=== PATIENT | male | born 1970 | race Caucasian/White ===

== ENCOUNTER 2017-05-04 12:13 | Emergency (ER) | payer MEDICAID ==
[~2017-05-04] VITALS: Ht 170.2 cm; Wt 90.7 kg
[2017-05-04] MEDS ORDERED: LORAZEPAM INJ 2 MG/ML VIAL IVP ONE (12:30)
[2017-05-04] MEDS ORDERED: IV NS 0.9% 1,000 ML BAG IV ONE (12:30)
--- NOTE | 2017-05-04 12:30 | NUR ---
[id number]/[employer] FROM STREET: S/P ETOH, MARIJUANA, METH USE. NOTED ANXIOUS, RESTLESS, DEMANDING, LOUD. DIRECTABLE. PA AT BS FOR EVAL AND PT C/O "CHEST ACHE". DENIES TRAUMA. NOTED SCABS, NEEDLE ALTAMIRANO ALL OVER. REFUSES VS TO BE CHECKED. [employer] AT BS. SAFETY AND COMFORT MEASURES PROVIDED. WILL MONITOR.
[2017-05-04] MEDS ORDERED: LORAZEPAM INJ 2 MG/ML VIAL ONE (12:33)
--- NOTE | 2017-05-04 12:50 | NUR ---
PT NOTED COMBATIVE, RESTLESS AND UNCOOPERATIVE WITH ER STAFF. NOTED VERBALLY DEMANDING, AND AGITATED. CODE BINDU CALLED. RESTRAINTS SAFELY PLACED ON PT PER PROTOCOL. MEDS GIVEN ORDERED. VSS. WILL MONITOR.
[2017-05-04] MEDS ORDERED: HALOPERIDOL LACTATE INJ 5 MG/ML VIAL ONE (12:55)
[2017-05-04] MEDS ORDERED: HALOPERIDOL LACTATE INJ 5 MG/ML VIAL IM ONE (13:00)
[2017-05-04 13:18] LABS: APPEARANCE,URINE Clear (CLEAR); BILIRUBIN,URINE Negative (NEGATIVE); BLOOD, URINE Negative Ery/uL (NEGATIVE); COLOR,URINE Yellow (YELLOW); KETONES,URINE 15 (NEGATIVE); LEUKOCYTE ESTERASE ,URINE Negative (NEGATIVE); NITRITE, URINE Negative (NEGATIVE); PROTEIN,URINE 30 mg/dl (NEGATIVE); UGLUCOSE Negative (NEGATIVE); UROBILINOGEN,URINE 0.2 EU/dL (0.2)
[2017-05-04 13:27] LABS: BACTERIA,URINE None seen /HPF (None Seen); RBC,URINE NONE SEEN /HPF (0-2); WBC,URINE 0-2 /HPF (0-3)
[2017-05-04 13:28] LABS: SQUAMOUS EPITHELIAL CELL,UR Few /HPF (None Seen)
--- NOTE | 2017-05-04 14:00 | NUR ---
UNABLE TO GET IV ACCESS.
--- NOTE | 2017-05-04 15:00 | NUR ---
Patient is resting comfortably in bed with eyes closed. Easily aroused. VSS
--- NOTE | 2017-05-04 17:00 | NUR ---
Patient is resting comfortably in bed with eyes closed. Easily aroused. VSS
--- NOTE | 2017-05-04 17:50 | NUR ---
Pt ambulatory with a steady gait.
[2017-05-04 18:23] VITALS: BP 125/80
--- NOTE | 2017-05-04 18:24 | NUR ---
Patient discharged to home in stable condition. Written and verbal after care instructions given. Patient verbalizes understanding of instruction.
== END 2017-05-04 21:41 | disposition home or self-care (01) ==
LOC: ER 12:16
DX: F15.159 Other stimulant abuse with stimulant-induced psychotic disorder, unspecified (principal); J18.1 Lobar pneumonia, unspecified organism; F12.10 Cannabis abuse, uncomplicated
CPT/HCPCS: 71045-TC; 80305; 81000-TC; A4606; J1630; J2060; J7030; Z7610

== ENCOUNTER 2017-05-05 18:14 | Inpatient (IN) | payer MEDICAID ==
[~2017-05-05] VITALS: Ht 180.3 cm; Wt 90.7 kg
[2017-05-05] MEDS ORDERED: CEFTRIAXONE 1GM BAG (ER ONLY) 1 GM/50 ML PIGGYBACK IV ONE (19:30)
[2017-05-05] MEDS ORDERED: LORAZEPAM INJ 2 MG/ML VIAL IV ONE (19:30)
[2017-05-05] MEDS ORDERED: IPRATROPIUM NEB FS 0.5 MG/2.5 ML AMPUL.NEB NEB ONE (19:30)
[2017-05-05] MEDS ORDERED: ALBUTEROL FS 2.5 MG/3 ML VIAL.NEB NEB ONE (19:30)
[2017-05-05] MEDS ORDERED: IV NS 0.9% 1,000 ML BAG IV ONE (19:30)
[2017-05-05] MEDS ORDERED: AZITHROMYCIN 500 MG in IV D5W 250 ML IV ONE (19:30)
[2017-05-05] MEDS ORDERED: AZITHROMYCIN 250 MG TABLET ONE (20:21)
[2017-05-05] MEDS ORDERED: CEFTRIAXONE 500 MG VIAL ONE (20:24)
[2017-05-05] MEDS ORDERED: IPRATROPIUM NEB FS 0.5 MG/2.5 ML AMPUL.NEB ONE (20:25)
[2017-05-05] MEDS ORDERED: ALBUTEROL FS 2.5 MG/3 ML VIAL.NEB ONE (20:25)
[2017-05-05] MEDS ORDERED: CEFTRIAXONE 1 G VIAL ONE (20:26)
[2017-05-05] MEDS ORDERED: LIDOCAINE /MPF 1% VIAL 5 ML VIAL ONE (20:27)
[2017-05-05] MEDS ORDERED: AZITHROMYCIN 250 MG TABLET PO ONE (20:30)
[2017-05-05] MEDS ORDERED: CEFTRIAXONE 1 G VIAL IM ONE (20:30)
[2017-05-05] MEDS ORDERED: DIPHENHYDRAMINE HCL 12.5 MG/5 ML UDC PO ONE (21:00)
[2017-05-05] MEDS ORDERED: LORAZEPAM 1 MG TABLET PO ONE (21:00)
[2017-05-05] MEDS ORDERED: diphenhydrAMINE HCL 25 MG CAPSULE ONE (21:07)
[2017-05-05] MEDS ORDERED: LORAZEPAM 1 MG TABLET ONE (21:07)
[2017-05-05 21:45] VITALS: BP 138/74
[2017-05-05 22:00] VITALS: BP 138/74
[2017-05-05] MEDS ORDERED: ONDANSETRON HCL/PF 4 MG/2 ML VIAL IVP PRN (22:30)
[2017-05-05] MEDS ORDERED: Z GUARD REMEDY 2 OZ OINT TP PRN (22:30)
[2017-05-05] MEDS ORDERED: ACETAMINOPHEN 325 MG TABLET PO PRN (22:30)
[2017-05-05] MEDS ORDERED: ZOLPIDEM TARTRATE 5 MG TABLET PO PRN (22:30)
[2017-05-05] MEDS ORDERED: ENOXAPARIN SODIUM 40 MG/0.4 ML DISP.SYRIN SQ SCH (22:30)
[2017-05-05] MEDS ORDERED: MAGNESIUM HYDROXIDE 30 ML UDC PO PRN (22:30)
[2017-05-05] MEDS ORDERED: ENOXAPARIN SODIUM 40 MG/0.4 ML DISP.SYRIN SQ ONE (23:13)
--- NOTE | 2017-05-05 23:13 | NUR ---
RN OPENING NOTES RECEIVE PT FROM [facility] VIA WHEELCHAIR RECEIVE AT [id number]. PT A/O X 3, PT BEING UNCOOPERATIVE WITH HIS PLAN OF CARE, CONTINUOUS HEALTH EDUCATION PROVIDED TO THE PT. PATIENT DENIES CHEST PAIN, NO NAUSEA/VOMITING, NO SOB, TOLERATING ROOM AIR 98%. UNABLE TO ASSESS SKIN, PT REFUSES HEAD TO TOE SKIN ASSESSMENT PT REFUSES PICTURES TO BE TAKEN TO HIS SKIN, PT REFUSES TO REMOVE SHIRT AND PANTS DESPITE EXPLAINING RISKS AND BENEFITS N.P BLEMISH REMOVER MADE AWARE. SAFETY MEASURES IN PLACE. ON LOW BED AT ALL TIMES. WILL CONTINUE TO MONITOR PT.
[2017-05-05] MEDS: HYDROCODONE/APAP 5/325MG 1 EACH TABLET PO PRN (23:29)
--- NOTE | 2017-05-06 06:20 | NUR ---
MS RN CLOSING NOTES PT COMFORTABLY ASLEEP AND EASILY AWAKEN, TOLERATING ROOM AIR 02 SAT 97% IN STABLE CONDITION. RESPIRATION EVEN AND UNLABORED. KEPT CLEAN AND DRY AND COMFORTABLE, ALL NURSING CARE RENDERED. NEEDS ATTENDED AND ANTICIPATED, FREQUENT VISUAL CHECK DONE FOR SAFETY EVERY 2 HOURS. NO COMPLAINS OF PAIN. ON LOW BED AT ALL TIMES TO ENSURE SAFETY. SAFE HAZARD FREE ENVIRONMENT PROVIDED. CALL LIGHT WITHIN EASY TO REACH. WILL ENDORSE NEXT SHIFT CONTINUITY OF CARE
[2017-05-06 06:55] LABS: BASOPHILS # (AUTO) 0.1 /CMM (0.0-0.2); EOSINOPHILS # (AUTO) 0.1 /CMM (0.0-0.7); EOSINOPHILS % (AUTO) 1.9 % (0.0-6.0); HEMATOCRIT 39 % (39-51); HEMOGLOBIN 13.4 g/dL (13.5-17.5); LYMPHOCYTES % (AUTO) 27.1 % (20.0-44.0); MEAN CORPUSCULAR HEMOGLOBIN 27 PG (26.0-33.0); MEAN CORPUSCULAR HGB CONC 34 g/dl (31.0-36.0); MEAN CORPUSCULAR VOLUME 80 fL (80-96); MONOCYTES # (AUTO) 0.7 /CMM (0.1-1.30); MONOCYTES % (AUTO) 10.2 % (2.0-12.0); NEUTROPHILS # (AUTO) 4.3 /CMM (1.8-8.9); NEUTROPHILS % (AUTO) 59.8 % (43.0-81.0); PLATELET COUNT (AUTO) 226 /CMM (150-450); RDW COEFFICIENT OF VARIATION 15.5 (11.5-15.0); RED BLOOD CELL COUNT(AUTO) 4.93 MIL/uL (4.5-6.0); WHITE BLOOD COUNT (AUTO) 7.3 K/uL (4.3-11.0)
--- NOTE | 2017-05-06 07:55 | NUR ---
ms rn received on bed, sleeping, easily arousable, not in any form of distress, respirations even and unlabored,no sob noted.will monitor patient.
[2017-05-06 08:00] VITALS: BP 120/77
--- NOTE | 2017-05-06 11:00 | NUR ---
MS COREY WAS SEEN BY LA W/ ORDERS MADE AND CARRIED OUT.
[2017-05-06] MEDS ORDERED: ENOXAPARIN SODIUM 40 MG/0.4 ML DISP.SYRIN SQ SCH (11:06)
[2017-05-06 11:42] LABS: CALCIUM, SERUM 8.7 mg/dL (8.5-10.1); CREATININE 0.9 mg/dL (0.6-1.3); MAGNESIUM 2.1 mg/dL (1.8-2.4); PHOSPHORUS 2.6 mg/dL (2.5-4.9); POTASSIUM 3.4 mmol/L (3.5-5.1)
[2017-05-06] MEDS: LORAZEPAM INJ 2 MG/ML VIAL IV PRN ×3 (12:40→23:11)
[2017-05-06 16:00] VITALS: BP 131/88
[2017-05-06] MEDS: HYDROCODONE/APAP 5/325MG 1 EACH TABLET PO PRN ×2 (16:10→23:40)
--- NOTE | 2017-05-06 18:00 | NUR ---
MS RN ON BED,NO CHANGE OF CONDITION. ALL NEEDS ATTENDED.
[2017-05-06] MEDS ORDERED: AZITHROMYCIN 500 MG in IV D5W 250 ML IV SCH (19:00)
--- NOTE | 2017-05-06 19:55 | NUR ---
MS/PERSONAL BANKING ASSISTANT; RECEIVED PT IN BED AWAKE, ALERT AND ORIENTED X 3. PT EATING HIS DINNER AT THIS TIME. PT WAS ASKING HIS MED. IVAB. IV SITE MIDLINE MAGGI INTACT. BED ON LOWER POSITION AND LOCKED FOR SAFETY. SIDE RAILS X2 ARE UP FOR SAFETY. DENIES PAIN. BREATHING NON LABORED. WILL CONTINUE TO MONITOR. CALL LIGHT WITHIN REACH.
[2017-05-06 20:00] VITALS: BP 132/75
[2017-05-06] MEDS ORDERED: CEFTRIAXONE 1 G in IV D5W 50 ML IV SCH (20:00)
[2017-05-07] MEDS: LORAZEPAM INJ 2 MG/ML VIAL IV PRN ×3 (02:53→10:59)
--- NOTE | 2017-05-07 06:58 | NUR ---
MS RN NOTES FEELING ANXIOUS,ATIVAN 1MG IV GIVEN PER PATIENT REQUEST.
--- NOTE | 2017-05-07 07:00 | NUR ---
MS/HEAVY DUTY MECHANIC; SLEPT ON AND OFF. PT IS VERY DEMANDING AND SCREAMED FOR HIS MEDS. WILL CONTINUE TO MONITOR. WILL ENDORSE TO THE DAY SHIFT . CALL LIGHT WITHIN REACH.
[2017-05-07] MEDS: HYDROCODONE/APAP 5/325MG 1 EACH TABLET PO PRN ×2 (07:27→12:21)
--- NOTE | 2017-05-07 07:45 | NUR ---
MS RN RECEIVED ON BED, AWAKE,ALERT,ORIENTEDX4,NOT IN ANY FORM OF DISTRESS, RESPIRATIONS EVEN AND UNLABORED,NO SOB NOTED, LUNGS ARE CLEAR,ABDOMEN SOFT,POSITIVE BOWEL SOUNDS, DENIES PAIN AT THIS TIME.
[2017-05-07 08:00] VITALS: BP 117/66
--- NOTE | 2017-05-07 08:00 | NUR ---
MS RN BREAKFAST SERVED,PATIENT IS MISSING AT THIS TIME, CALLED SECURITY, PATIENT IS DOWN THERE SMOKING.
[2017-05-07 09:00] VITALS: BP 117/66
[2017-05-07] MEDS ORDERED: LISINOPRIL (10MG) 10 MG TABLET PO SCH (09:00)
[2017-05-07] MEDS ORDERED: HYDROCHLOROTHIAZIDE 25 MG TABLET PO SCH (09:00)
--- NOTE | 2017-05-07 09:00 | NUR ---
MS RN PATIENT CAME BACK, SMELLS SMOKE ALL OVER THE ROOM. CHARGE NURSE NOTIFIED.
--- NOTE | 2017-05-07 10:37 | NUR ---
PT PROVIDED WITH WINTER LONG-TERM INFORMATION, HE STATED:"I'M GOING TO MY MOMS HOUSE AND I NEED TAXI." WILL F/U.
--- NOTE | 2017-05-07 10:40 | NUR ---
MSRN WAS ABLE TO SPEAK W/ LA W/ ORDERTO GO HOME TODAY. PATIENT REFUSED TO GO.
--- NOTE | 2017-05-07 11:30 | NUR ---
MS RELIABILITY TECHNICIANS NURSE SPOKE TOP PT, DUE TO PATIENT DON'T LIKE TO GO HOME. GAVE LIST OF [facility], REFUSED TO GO.
--- NOTE | 2017-05-07 14:50 | NUR ---
ms rn patient went home via taxi, discharge instructions given w/ prescription, no distress noted.
== END 2017-05-07 14:50 | disposition home or self-care (01) | DRG 139 ==
LOC: ER 18:26 → MED 20:53
PROVIDERS: ADMIT Nurse Practitioner Acute Care; ATTEND Nurse Practitioner Acute Care
PROC: B546ZZA Ultrasonography of Right Subclavian Vein, Guidance (ICD-10-PCS; principal; 2017-05-05)
PROC: 05H533Z Insertion of Infusion Device into Right Subclavian Vein, Percutaneous Approach (ICD-10-PCS; principal; 2017-05-05)
DX: J15.9 Unspecified bacterial pneumonia (principal); F11.10 Opioid abuse, uncomplicated; F15.10 Other stimulant abuse, uncomplicated; G89.29 Other chronic pain; Z59.0 Homelessness; F43.10 Post-traumatic stress disorder, unspecified; F17.200 Nicotine dependence, unspecified, uncomplicated
CPT/HCPCS: 36415; 80048-TC; 80061-TC; 83735-TC; 84100-TC; 85025-TC; J0456; J0696; J1650; J2060; J3490; J7050; J7060; Q0163